=== PATIENT | female | born 1960 | race Caucasian/White ===

== ENCOUNTER → 2019-12-17 18:35 | Outpatient (BNVA) | payer MEDICAID, SELFPAY | PROVIDERS: Family Provider Family Medicine; Visit Provider Family Medicine | DX: E11.9 Type 2 diabetes mellitus without complications (principal); G47.00 Insomnia, unspecified; E78.5 Hyperlipidemia, unspecified; K21.9 Gastro-esophageal reflux disease without esophagitis; I10 Essential (primary) hypertension; F32.9 Major depressive disorder, single episode, unspecified | CPT/HCPCS: 80053; 80061; 83036 ==

== ENCOUNTER → 2019-12-24 14:10 | Outpatient (BNVA) | payer MEDICAID, SELFPAY | PROVIDERS: Family Provider Family Medicine; Visit Provider Psychiatry & Neurology Psychiatry | DX: F33.1 Major depressive disorder, recurrent, moderate (principal) | CPT/HCPCS: 90792 ==

== ENCOUNTER → 2020-08-04 11:07 | Outpatient (BNVA) | payer MEDICAID, SELFPAY | PROVIDERS: Family Provider Family Medicine; PCP Family Medicine; Visit Provider Family Medicine | DX: E11.65 Type 2 diabetes mellitus with hyperglycemia (principal); E78.2 Mixed hyperlipidemia; I25.10 Atherosclerotic heart disease of native coronary artery without angina pectoris; K21.9 Gastro-esophageal reflux disease without esophagitis; Z79.899 Other long term (current) drug therapy | CPT/HCPCS: 80053; 83036 ==

== ENCOUNTER → 2020-12-14 10:16 | Outpatient (BNVA) | payer MEDICAID, SELFPAY | PROVIDERS: Family Provider Family Medicine; PCP Family Medicine; Visit Provider Family Medicine | DX: E78.2 Mixed hyperlipidemia (principal); E11.65 Type 2 diabetes mellitus with hyperglycemia; I10 Essential (primary) hypertension; K21.9 Gastro-esophageal reflux disease without esophagitis; I25.10 Atherosclerotic heart disease of native coronary artery without angina pectoris | CPT/HCPCS: 80053; 80061; 83036 ==

== ENCOUNTER → 2021-04-13 15:41 | Outpatient (BNVA) | payer MEDICAID, SELFPAY | PROVIDERS: Family Provider Family Medicine; PCP Family Medicine; Visit Provider Family Medicine | DX: R39.9 Unspecified symptoms and signs involving the genitourinary system (principal); E11.65 Type 2 diabetes mellitus with hyperglycemia; E87.1 Hypo-osmolality and hyponatremia; N30.01 Acute cystitis with hematuria | CPT/HCPCS: 80048; 81000; 83036 ==

== ENCOUNTER 2021-04-14 23:14 | Emergency (ER) | payer MEDICAID, SELFPAY ==
[2021-04-15 00:35] VITALS: BP 116/73; PULSE 99; RESP 20; TEMP 37.2; O2SAT 97; BMI 24.9
[2021-04-15 00:47] LABS: Glucose Point of Care 223 mg/dL (70-110)
[2021-04-16 02:27] LABS: Glucose Point of Care 121 mg/dL (70-110)
== END 2021-04-15 02:40 | disposition left against medical advice (07) ==
PROVIDERS: Emergency Provider Family Medicine; PCP Family Medicine
DX: Z53.21 Procedure and treatment not carried out due to patient leaving prior to being seen by health care provider (principal)
CPT/HCPCS: 36416; 82962

== ENCOUNTER 2021-04-16 01:14 | Emergency (ER) | payer MEDICAID, SELFPAY ==
[2021-04-16] VITALS (7 sets, daily range): BP systolic 98–126; BP diastolic 50–63; PULSE 95–115; TEMP 37.1; O2SAT 93–936; BMI 26.5
--- NOTE | 2021-04-16 01:21 | XRR_ITS ---
PROCEDURE INFORMATION: Exam: XR Chest Exam date and time: 04/16/2021 1:21 AM Age: 60 years old Clinical indication: Patient HX: General weakness with hypotension. TECHNIQUE: Imaging protocol: XR of the chest. Views: 1 view. COMPARISON: No relevant prior studies available. FINDINGS: Lungs: Unremarkable. No consolidation. Pleural spaces: Unremarkable. No pleural effusion. No pneumothorax. Heart/Mediastinum: Unremarkable. No cardiomegaly. Bones/joints: Unremarkable. XR/XR chest 1V portable [id number] IMPRESSION: No acute findings. Radiation Dose CTDIVOL = (mGy): DLP = (mGy-cm)
--- NOTE | 2021-04-16 01:22 | ECG_ITS ---
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 Measurements Intervals [place] Rate: 97 P: 50 HI: 168 QRS: 40 QRSD: 150 T: -32 QT: 388 QTc: 495 Interpretive Statements SINUS RHYTHM LEFT BUNDLE BRANCH BLOCK [120+ ms QRS DURATION, 80+ ms Q/S IN V1/V2, 85+ ms R IN I/aVL/V5/V6] No previous ECG available for comparison Electronically Signed On 04-17-2021 13:18:27 SAFE AND VAULT SERVICE MECHANIC by Slade Soto M.D. [id number]
[2021-04-16 01:36] LABS: Basophils % 0.3 %; Hematocrit 41.4 % (37.0-47.0); Hemoglobin 13.5 g/dL (11.5-15.3); Lymphocytes # 0.5 10^3/uL (0.8-4.8); Lymphocytes % 6.7 %; Mean Corpuscular HGB Conc 32.6 g/dL (30.0-36.0); Mean Corpuscular Hemoglobin 28.8 pg (28.0-34.0); Mean Corpuscular Volume 88.3 fl (81-99); Mean Platelet Volume 10.9 fL (7.4-10.4); Monocytes # 0.4 10^3/uL (0.2-0.9); Neutrophils # 6.38 10^3/uL (1.8-7.7); Neutrophils % 86.6 %; Nucleated Red Blood Cells % 0 %; Platelet Count 258 10^3/cmm (130-400); Red Blood Count 4.69 10^6/uL (4.1-5.3); Red Cell Distribution Width 12.6 % (12.1-15.1); White Blood Count 7.4 10^3/uL (4.0-10.0)
--- NOTE | 2021-04-16 01:47 | W.ED.GENADLT ---
Documented by User: FERNANDO Todd 04/16/21 17:08 HPI - General Adult General: Chief complaint: General Medical Stated complaint: Weakness Time Seen by Provider: 04/16/21 01:18 History of Present Illness: HPI narrative: Patient is a 60-year-old female comes to the ED with generalized weakness. Past medical history of GERD, CAD, hyperlipidemia, hypertension, type 2 diabetes and depression. Patient says yesterday she had some elevated blood sugars of around 400. She had a couple episodes of emesis and diarrhea yesterday as well. Today she has not had any diarrhea, but had one episode of emesis earlier today. Her blood sugars have been back in the normal range today. She currently feels generalized weakness but a little dehydrated after the vomiting and diarrhea yesterday. Patient was recently diagnosed for UTI a couple days ago and is currently taking antibiotic. denies any fever, chills, chest pain, shortness of breath, abdominal pain, bladder or bowel symptoms. Associated symptoms: Reports nausea (Resolved) and vomiting (Resolved); Deny chest pain, dyspnea, headache(s), rash or palpitations Review of Systems Const: Reports: fatigue (Generalized weakness); Denies: fever(s) or chills Eyes: Denies: change in vision or eye discomfort ENMT: Denies: throat pain, odynophagia, nasal discharge or nasal congestion Card: Denies: chest pain, palpitations, edema, swelling of feet/ankles, dyspnea on exertion or orthopnea Resp: Denies: dyspnea, productive cough or non-productive cough GI: Reports: nausea (Resolved), vomiting (Resolved) and diarrhea (Resolved); Denies: abdominal pain, constipation or hematochezia : Denies: flank pain, dysuria or hematuria Musc: Denies: neck pain, back pain or extremity swelling Skin/Breast: Denies: rash or new lesions Neuro: Denies: headache(s), numbness in extremities or weakness in extremities PFSH ED PFSH: Medical History CAD (coronary artery disease) Depression GERD (gastroesophageal reflux disease) Hyperlipidemia Hypertension Insomnia Type 2 diabetes mellitus Family History Father Stroke Diabetes Social History Smoking and tobacco status: former smoker Alcohol intake: never History of recent travel: No Current gender identity: Female Physical Exam Const: COMMON NORMALS: no acute distress, patient oriented x3 and alert GENERAL APPEARANCE: cooperative and comfortable HENMT: COMMON NORMALS: normocephalic HEAD & SCALP: normocephalic MOUTH: moist mucous membranes abnormal Details: parched THROAT: posterior oropharynx normal and uvula midline Eye: COMMON NORMALS: Equal, round and reactive pupils present GENERAL EYE: appearance normal, both eyes and all related structures PUPIL: Yes Equal, round and reactive pupils present Neck/C-Spine: COMMON NORMALS: supple GENERAL: Yes normal visual inspection Resp: COMMON NORMALS: normal respiratory effort, No retractions, No use of accessory muscles and clear to auscultation bilaterally AUSCULTATION: clear to auscultation bilaterally Cardio: COMMON NORMALS: regular rate, regular rhythm, S1 normal heart sound present, S2 normal heart sound present, No gallops present (Cardio), No clicks present (Cardio), No murmurs present (Cardio) and Peripheral pulses 2+ throughout RATE: regular rate RHYTHM: regular rhythm HEART SOUNDS: S1 normal heart sound present and S2 normal heart sound present PERIPHERAL PULSES: Peripheral pulses 2+ throughout GI: COMMON NORMALS: Normal to inspection, nondistended, normoactive bowel sounds present, Soft to palpation, non-tender and no masses PALPATION: Yes Soft to palpation : COMMON NORMALS: Yes no CVA tenderness BLADDER/KIDNEY EXAM: Yes no CVA tenderness Back/Pelvis: COMMON NORMALS: no CVA tenderness Extremity: COMMON NORMALS: normal to inspection Neuro: COMMON NORMALS: patient oriented x3 and moves all extremities SENSORIUM/ORIENTATION: Yes alert Skin: GENERAL SKIN EXAM: dry skin Course Vital Signs: Vital signs: Vital Signs Temperature 98.8 F 04/16/21 01:17 Pulse Rate 115 H 04/16/21 06:48 Blood Pressure 126/62 04/16/21 06:48 Pulse Oximetry 94 04/16/21 06:48 MDM - General Adult Lab Data: Attestation: I reviewed the patient's lab results. Labs: Lab Results 04/16/21 04/16/21 04/16/21 01:31 01:31 01:31 WBC 7.4 10^3/uL 10^3/ uL (4.0-10.0) RBC 4.69 10^6/uL 10^6 /uL (4.1-5.3) Hgb 13.5 g/dL g/dL (11.5-15.3) Hct 41.4 % % (37.0-47.0) MCV 88.3 fl fl (81-99) MCH 28.8 pg pg (28.0-34.0) MCHC 32.6 g/dL g/dL (30.0-36.0) RDW 12.6 % % (12.1-15.1) Plt Count 258 10^3/cmm 10^3 /cmm (130-400) MPV 10.9 fL H fL (7.4-10.4) Neut % (Auto) 86.6 % % Lymph % (Auto) 6.7 % % [place] % (Auto) 6.0 % % Eos % (Auto) 0.0 % % Baso % (Auto) 0.3 % % Neut # (Auto) 6.38 10^3/uL 10^3 /uL (1.8-7.7) Lymph # (Auto) 0.5 10^3/uL L 10^ 3/uL (0.8-4.8) [place] # (Auto) 0.4 10^3/uL 10^3/ uL (0.2-0.9) Eos # (Auto) 0.0 10^3/uL 10^3/ uL (0.0-0.8) Baso # (Auto) 0.0 10^3/uL 10^3/ uL (0.0-0.1) Nucleated RBC % (a uto) 0 % % Nucleated RBCs # 0.0 /100WBC /100W BC Sodium 129 mmol/L L mmol /L (136-145) Potassium 4.5 mmol/L mmol/L (3.5-5.1) Chloride 92 mmol/L L mmol/ L (98-107) Carbon Dioxide 20 mmol/L L mmol/ L (22-29) Anion Gap 21.5 H (5-19) BUN 21 mg/dL mg/dL (8-23) Creatinine 1.0 mg/dL H mg/dL (0.5-0.9) GFR Calculation 56.2 mL/min L mL/ min (90-130) Glucose 105 mg/dL mg/dL (65-115) Calculated Osmolal ity 271 mOsm/kg L mOs m/kg (285-295) Calcium 8.7 mg/dL mg/dL (8.5-10.5) Total Bilirubin 0.2 mg/dL mg/dL (0.15-1.2) AST 16 U/L U/L (0-32) ALT 17 U/L U/L (0-33) Alkaline Phosphata se 59 IU/L IU/L (35-105) Troponin T Baselin e 17 ng/L H ng/L (0-10) Troponin T 120 Min [place] Troponin T Total Protein 7.1 g/dL g/dL (6.6-8.7) Albumin 4.3 g/dL g/dL (3.5-5.2) Globulin 2.8 g/dL g/dL (1.3-4.6) Urine Color Urine Appearance Urine pH Ur Specific Gravit y Urine Protein Urine Glucose (UA) Urine Ketones Urine Blood Urine Nitrate Urine Bilirubin Urine Urobilinogen Ur Leukocyte Rosalie ase Urine RBC Urine WBC Ur Squamous Epith Cells Amorphous Sediment Urine Bacteria Hyaline Casts SARS-CoV-2 Ag (Rap id) 04/16/21 04/16/21 04/16/21 02:19 04:25 04:28 WBC RBC Hgb Hct MCV MCH MCHC RDW Plt Count MPV Neut % (Auto) Lymph % (Auto) [place] % (Auto) Eos % (Auto) Baso % (Auto) Neut # (Auto) Lymph # (Auto) [place] # (Auto) Eos # (Auto) Baso # (Auto) Nucleated RBC % (a uto) Nucleated RBCs # Sodium Potassium Chloride Carbon Dioxide Anion Gap BUN Creatinine GFR Calculation Glucose Calculated Osmolal ity Calcium Total Bilirubin AST ALT Alkaline Phosphata se Troponin T Baselin e Troponin T 120 Min [place] 11.43 ng/L H ng/L (0-10) Delta Troponin T -5.57 ABS# L ABS# (0-10) Total Protein Albumin Globulin Urine Color Yellow (Yellow) Urine Appearance Clear (CLEAR) Urine pH 5 (5-7) Ur Specific Gravit y 1.020 (1.005-1.030) Urine Protein Neg (Negative) Urine Glucose (UA) 4+ H (Normal) Urine Ketones 1+ H (Negative) Urine Blood Neg (Negative) Urine Nitrate Negative (Negative) Urine Bilirubin 1+ H (Negative) Urine Urobilinogen Norm mg/dL mg/dL (Negative) Ur Leukocyte Rosalie ase 1+ H (Negative) Urine RBC 0-4 /hpf H /hpf (0-2) Urine WBC 15-25 /hpf H /hpf (0-5) Ur Squamous Epith Cells 10-15 /hpf H /hpf (0-5) Amorphous Sediment 1+ /hpf /hpf Urine Bacteria 1+ /hpf H /hpf (NONE) Hyaline Casts 0-4 /lpf H /lpf SARS-CoV-2 Ag (Rap id) Negative (Negative) Discharge Plan Discharge Patient Disposition: Home Clinical Impression: Acute dehydration Condition: Stable Prescriptions: No Action citalopram 20 mg tablet 20 mg PO DAILY 30 Days Qty: 30 RF: 5 lisinopril 10 mg tablet 10 mg PO DAILY 90 Days Qty: 90 RF: 1 lovastatin 20 mg tablet 20 mg PO DAILY 90 Days Qty: 90 RF: 1 omeprazole 10 mg capsule,delayed release(DR/EC) 10 mg PO DAILY 90 Days Qty: 90 RF: 1 diphenhydramine HCl [Benadryl] 25 mg capsule 25 mg PO BID PRN (Reason: itching/swelling) 5 Days Qty: 10 RF: 0 glipizide 10 mg tablet 10 mg PO BID 90 Days Qty: 180 RF: 1 Victoza 2-Frandy 0.6 mg/0.1 mL (18 mg/3 mL) pen injector 1.8 mg SUBCUT DAILY 30 Days Qty: 9 RF: 5 metformin 1,000 mg tablet 1,000 mg PO BID 90 Days Qty: 180 RF: 1 (DME) Blood Glucose Test Strip See Rx Instructions .ROUTE .MEDSUPPLY Qty: 50 RF: 11 (DME) blood-glucose meter [Blood Glucose Monitoring] Kit See Rx Instructions .ROUTE .MEDSUPPLY Qty: 1 RF: 0 (DME) lancets Misc See Rx Instructions .ROUTE .MEDSUPPLY Qty: 100 RF: 11 alcohol swabs Pads, Medicated 1 pad topical TID PRN (Reason: as needed to check blood sugar) 30 Days Qty: 100 RF: 11 melatonin 3 mg tablet 3 mg PO DAILY RF: 0 aspirin 81 mg tablet,chewable 81 mg PO DAILY RF: 0 hydroxyzine HCl 25 mg tablet 25 mg PO .at bedtime PRN (Reason: insomina) 30 Days Qty: 30 RF: 2 sulfamethoxazole-trimethoprim [Bactrim DS] 800-160 mg tablet 1 tab PO Q12H 3 Days Qty: 6 RF: 0 Farxiga 10 mg tablet 10 mg PO QAM 30 Days Qty: 30 RF: 5 Discharge Orders: Discharge ED (Routine); Ordered 04/16/21 Ordered By: Felipe Paul Referrals: Sheree Fernandez MD [Primary Care Provider] - 1-3 days Discharge Diet: Advance as tolerated Discharge Activity: Increase activity as tolerated Patient Instructions: Dehydration (ED) Activity Restrictions/Additional Instructions: Continue your antibiotics. Watch your blood sugar closely. Return for fever greater than 100, shortness of breath, vomiting liquids or medications, continued diarrhea, any other concerning symptoms. Coding Level of Care Code ED Outreach Librarian for Chg Fwd Exam Comprehensive Documented by User: Felipe Paul DO 04/16/21 06:05 HPI - General Adult General: Chief complaint: General Medical Stated complaint: Weakness Time Seen by Provider: 04/16/21 01:18 [facility] ED PFSH: Medical History CAD (coronary artery disease) Depression GERD (gastroesophageal reflux disease) Hyperlipidemia Hypertension Insomnia Type 2 diabetes mellitus Family History Father Stroke Diabetes Social History Smoking and tobacco status: former smoker Alcohol intake: never History of recent travel: No Current gender identity: Female Course Vital Signs: Vital signs: Vital Signs Temperature 98.8 F 04/16/21 01:17 Pulse Rate 115 H 04/16/21 06:48 Blood Pressure 126/62 04/16/21 06:48 Pulse Oximetry 94 04/16/21 06:48 MDM - General Adult MDM Narrative: Medical decision making narrative: 60-year-old female checked out to me by Lisbet at shift change this lady said generalized weakness, following diarrhea high blood sugars yesterday with some emesis. She has had 2.5 L currently. Her heart rates in the 100s. Her oxygen sat is 90% on room air. Her white blood cell count 7.4. Her bicarbonate level is 20. Her creatinine is up to 1, and her baseline is 0.4. She is initially mildly hypotensive. Current blood pressure is 115/50 with a MAP of 71. She is feeling improved. We will allow her home. We did do a rapid Covid test on her which was negative. Head CT and chest x-ray are also negative. Lab Data: Labs: Lab Results 04/16/21 04/16/21 04/16/21 01:31 01:31 01:31 WBC 7.4 10^3/uL 10^3/ uL (4.0-10.0) RBC 4.69 10^6/uL 10^6 /uL (4.1-5.3) Hgb 13.5 g/dL g/dL (11.5-15.3) Hct 41.4 % % (37.0-47.0) MCV 88.3 fl fl (81-99) MCH 28.8 pg pg (28.0-34.0) MCHC 32.6 g/dL g/dL (30.0-36.0) RDW 12.6 % % (12.1-15.1) Plt Count 258 10^3/cmm 10^3 /cmm (130-400) MPV 10.9 fL H fL (7.4-10.4) Neut % (Auto) 86.6 % % Lymph % (Auto) 6.7 % % [place] % (Auto) 6.0 % % Eos % (Auto) 0.0 % % Baso % (Auto) 0.3 % % Neut # (Auto) 6.38 10^3/uL 10^3 /uL (1.8-7.7) Lymph # (Auto) 0.5 10^3/uL L 10^ 3/uL (0.8-4.8) [place] # (Auto) 0.4 10^3/uL 10^3/ uL (0.2-0.9) Eos # (Auto) 0.0 10^3/uL 10^3/ uL (0.0-0.8) Baso # (Auto) 0.0 10^3/uL 10^3/ uL (0.0-0.1) Nucleated RBC % (a uto) 0 % % Nucleated RBCs # 0.0 /100WBC /100W BC Sodium 129 mmol/L L mmol /L (136-145) Potassium 4.5 mmol/L mmol/L (3.5-5.1) Chloride 92 mmol/L L mmol/ L (98-107) Carbon Dioxide 20 mmol/L L mmol/ L (22-29) Anion Gap 21.5 H (5-19) BUN 21 mg/dL mg/dL (8-23) Creatinine 1.0 mg/dL H mg/dL (0.5-0.9) GFR Calculation 56.2 mL/min L mL/ min (90-130) Glucose 105 mg/dL mg/dL (65-115) Calculated Osmolal ity 271 mOsm/kg L mOs m/kg (285-295) Calcium 8.7 mg/dL mg/dL (8.5-10.5) Total Bilirubin 0.2 mg/dL mg/dL (0.15-1.2) AST 16 U/L U/L (0-32) ALT 17 U/L U/L (0-33) Alkaline Phosphata se 59 IU/L IU/L (35-105) Troponin T Baselin e 17 ng/L H ng/L (0-10) Troponin T 120 Min [place] Troponin T Total Protein 7.1 g/dL g/dL (6.6-8.7) Albumin 4.3 g/dL g/dL (3.5-5.2) Globulin 2.8 g/dL g/dL (1.3-4.6) Urine Color Urine Appearance Urine pH Ur Specific Gravit y Urine Protein Urine Glucose (UA) Urine Ketones Urine Blood Urine Nitrate Urine Bilirubin Urine Urobilinogen Ur Leukocyte Rosalie ase Urine RBC Urine WBC Ur Squamous Epith Cells Amorphous Sediment Urine Bacteria Hyaline Casts SARS-CoV-2 Ag (Rap id) 04/16/21 04/16/21 04/16/21 02:19 04:25 04:28 WBC RBC Hgb Hct MCV MCH MCHC RDW Plt Count MPV Neut % (Auto) Lymph % (Auto) [place] % (Auto) Eos % (Auto) Baso % (Auto) Neut # (Auto) Lymph # (Auto) [place] # (Auto) Eos # (Auto) Baso # (Auto) Nucleated RBC % (a uto) Nucleated RBCs # Sodium Potassium Chloride Carbon Dioxide Anion Gap BUN Creatinine GFR Calculation Glucose Calculated Osmolal ity Calcium Total Bilirubin AST ALT Alkaline Phosphata se Troponin T Baselin e Troponin T 120 Min [place] 11.43 ng/L H ng/L (0-10) Delta Troponin T -5.57 ABS# L ABS# (0-10) Total Protein Albumin Globulin Urine Color Yellow (Yellow) Urine Appearance Clear (CLEAR) Urine pH 5 (5-7) Ur Specific Gravit y 1.020 (1.005-1.030) Urine Protein Neg (Negative) Urine Glucose (UA) 4+ H (Normal) Urine Ketones 1+ H (Negative) Urine Blood Neg (Negative) Urine Nitrate Negative (Negative) Urine Bilirubin 1+ H (Negative) Urine Urobilinogen Norm mg/dL mg/dL (Negative) Ur Leukocyte Rosalie ase 1+ H (Negative) Urine RBC 0-4 /hpf H /hpf (0-2) Urine WBC 15-25 /hpf H /hpf (0-5) Ur Squamous Epith Cells 10-15 /hpf H /hpf (0-5) Amorphous Sediment 1+ /hpf /hpf Urine Bacteria 1+ /hpf H /hpf (NONE) Hyaline Casts 0-4 /lpf H /lpf SARS-CoV-2 Ag (Rap id) Negative (Negative) Discharge Plan Discharge Patient Disposition: Home Clinical Impression: Acute dehydration Condition: Stable Prescriptions: No Action citalopram 20 mg tablet 20 mg PO DAILY 30 Days Qty: 30 RF: 5 lisinopril 10 mg tablet 10 mg PO DAILY 90 Days Qty: 90 RF: 1 lovastatin 20 mg tablet 20 mg PO DAILY 90 Days Qty: 90 RF: 1 omeprazole 10 mg capsule,delayed release(DR/EC) 10 mg PO DAILY 90 Days Qty: 90 RF: 1 diphenhydramine HCl [Benadryl] 25 mg capsule 25 mg PO BID PRN (Reason: itching/swelling) 5 Days Qty: 10 RF: 0 glipizide 10 mg tablet 10 mg PO BID 90 Days Qty: 180 RF: 1 Victoza 2-Frandy 0.6 mg/0.1 mL (18 mg/3 mL) pen injector 1.8 mg SUBCUT DAILY 30 Days Qty: 9 RF: 5 metformin 1,000 mg tablet 1,000 mg PO BID 90 Days Qty: 180 RF: 1 (DME) Blood Glucose Test Strip See Rx Instructions .ROUTE .MEDSUPPLY Qty: 50 RF: 11 (DME) blood-glucose meter [Blood Glucose Monitoring] Kit See Rx Instructions .ROUTE .MEDSUPPLY Qty: 1 RF: 0 (DME) lancets Misc See Rx Instructions .ROUTE .MEDSUPPLY Qty: 100 RF: 11 alcohol swabs Pads, Medicated 1 pad topical TID PRN (Reason: as needed to check blood sugar) 30 Days Qty: 100 RF: 11 melatonin 3 mg tablet 3 mg PO DAILY RF: 0 aspirin 81 mg tablet,chewable 81 mg PO DAILY RF: 0 hydroxyzine HCl 25 mg tablet 25 mg PO .at bedtime PRN (Reason: insomina) 30 Days Qty: 30 RF: 2 sulfamethoxazole-trimethoprim [Bactrim DS] 800-160 mg tablet 1 tab PO Q12H 3 Days Qty: 6 RF: 0 Farxiga 10 mg tablet 10 mg PO QAM 30 Days Qty: 30 RF: 5 Discharge Orders: Discharge ED (Routine); Ordered 04/16/21 Ordered By: Felipe Paul Referrals: Sheree Fernandez MD [Primary Care Provider] - 1-3 days Discharge Diet: Advance as tolerated Discharge Activity: Increase activity as tolerated Patient Instructions: Dehydration (ED) Activity Restrictions/Additional Instructions: Continue your antibiotics. Watch your blood sugar closely. Return for fever greater than 100, shortness of breath, vomiting liquids or medications, continued diarrhea, any other concerning symptoms. Coding Level of Care Code ED Outreach Librarian for Chg Fwd Exam Comprehensive
[2021-04-16 02:00] LABS: Troponin(5th) Baseline 17 ng/L (0-10)
[2021-04-16 02:03] LABS: Alanine Aminotransferase 17 U/L (0-33); Albumin Level 4.3 g/dL (3.5-5.2); Alkaline Phosphatase 59 IU/L (35-105); Anion Gap 21.5 (5-19); Aspartate Amino Transferase 16 U/L (0-32); Blood Urea Nitrogen 21 mg/dL (8-23); Calcium 8.7 mg/dL (8.5-10.5); Carbon Dioxide 20 mmol/L (22-29); Chloride 92 mmol/L (98-107); Globulin 2.8 g/dL (1.3-4.6); Glomerular Filtration Rate 56.2 mL/min (90-130); Glucose 105 mg/dL (65-115); Osmolality Calculated 271 mOsm/kg (285-295); Potassium 4.5 mmol/L (3.5-5.1); Sodium 129 mmol/L (136-145); Total Bilirubin 0.2 mg/dL (0.15-1.2); Total Protein 7.1 g/dL (6.6-8.7)
[2021-04-16 02:41] LABS: Urine Appearance Clear (CLEAR); Urine Color Yellow (Yellow)
[2021-04-16 02:42] LABS: Add Urine Microscopic? YES; Bilirubin Urine 1+ (Negative); Blood Urine Neg (Negative); Glucose Urine UA 4+ (Normal); Ketones Urine 1+ (Negative); Leukocyte Esterase Urine 1+ (Negative); Nitrate Urine Negative (Negative); Protein Urine Neg (Negative); Urobilinogen Urine Norm (Negative); pH Urine 5 (5-7)
[2021-04-16 02:45] LABS: Add Urine Culture? No; Amorphous Sediment Urine 1+ /hpf; Bacteria Urine 1+ /hpf; Hyaline Casts Urine 0-4 /lpf; RBC Urine 0-4 /hpf (0-2); WBC Urine 15-25 /hpf (0-5)
--- NOTE | 2021-04-16 03:00 | CTR_ITS ---
PROCEDURE INFORMATION: Exam: CT Head Without Contrast Exam date and time: 04/16/2021 3:00 AM Age: 60 years old Clinical indication: Patient HX: C/O dizziness and general weakness. Hypotensive. TECHNIQUE: Imaging protocol: Computed tomography of the head without contrast. Radiation optimization: All CT scans at this facility use at least one of these dose optimization techniques: automated exposure control; mA and/or kV adjustment per patient size (includes targeted exams where dose is matched to clinical indication); or iterative reconstruction. COMPARISON: No relevant prior studies available. RADIATION DOSE METRICS: Total DLP (mGy-cm): 768.56 FINDINGS: Brain: There is mild parenchymal atrophy and chronic small vessel disease. No acute infarct or hemorrhage. Cerebral ventricles: No ventriculomegaly. Paranasal sinuses: Paranasal sinuses are clear. No air-fluid level. Mastoid air cells: Visualized mastoid air cells are clear. Bones/joints: No calvarial or skull base fracture. Soft tissues: Unremarkable. CT/CT head wo con* [id number] IMPRESSION: 1. No acute infarct or hemorrhage. 2. No calvarial or skull base fracture. 3. Mild parenchymal atrophy and chronic small vessel disease. Radiation Dose CTDIVOL = (mGy): DLP = 768.56 (mGy-cm)
--- NOTE | 2021-04-16 03:22 | ECG_ITS ---
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 Measurements Intervals [place] Rate: 112 P: 12 MI: 168 QRS: 42 QRSD: 145 T: 184 QT: 348 QTc: 476 Interpretive Statements SINUS TACHYCARDIA LEFT BUNDLE BRANCH BLOCK [120+ ms QRS DURATION, 80+ ms Q/S IN V1/V2, 85+ ms R IN I/aVL/V5/V6] Compared to ECG 04/16/2021 02:16:29 Sinus rhythm no longer present Electronically Signed On 04-18-2021 17:29:59 PHARMACY OPERATIONS SPECIALIST by Slade Soto M.D. [id number]
[2021-04-16] MEDS: sodium chloride 0.9% 500 ML 999 ML IV (03:27)
[2021-04-16 05:05] LABS: Troponin 5 2HR 11.43 ng/L (0-10); Troponin 5 2HR Delta -5.57 ABS# (0-10)
[2021-04-16 05:18] LABS: SARS Covid-2 Antigen Negative (Negative)
== END 2021-04-16 06:51 | disposition home or self-care (01) ==
PROVIDERS: Physician Assistant; Emergency Provider Emergency Medicine; PCP Family Medicine
DX: E86.0 Dehydration (principal); Z79.84 Long term (current) use of oral hypoglycemic drugs; Z79.82 Long term (current) use of aspirin; I25.10 Atherosclerotic heart disease of native coronary artery without angina pectoris; E78.5 Hyperlipidemia, unspecified; I10 Essential (primary) hypertension; E11.9 Type 2 diabetes mellitus without complications; Z87.891 Personal history of nicotine dependence; Z20.822 Contact with and (suspected) exposure to COVID-19
CPT/HCPCS: 36416; 70450; 71045; 80053; 81001; 82962; 84484; 85025; 87426; 93005; 99284; J7040

== ENCOUNTER → 2021-04-22 16:53 | Outpatient (BNVA) | payer MEDICAID, SELFPAY | PROVIDERS: PCP Family Medicine; Visit Provider Nurse Practitioner Family | DX: B37.9 Candidiasis, unspecified (principal) | CPT/HCPCS: 81000 ==

== ENCOUNTER → 2021-06-25 12:56 | Outpatient (BNVA) | payer MEDICAID, SELFPAY | PROVIDERS: PCP Family Medicine; Visit Provider Emergency Medicine | DX: N39.0 Urinary tract infection, site not specified (principal); E11.65 Type 2 diabetes mellitus with hyperglycemia; M62.838 Other muscle spasm; R81 Glycosuria | CPT/HCPCS: 81000 ==

== ENCOUNTER → 2021-07-26 10:53 | Outpatient (BNVA) | payer MEDICAID, SELFPAY | PROVIDERS: PCP Family Medicine; Visit Provider Family Medicine | DX: I10 Essential (primary) hypertension (principal); E78.2 Mixed hyperlipidemia; E11.65 Type 2 diabetes mellitus with hyperglycemia | CPT/HCPCS: 80053; 80061; 83036 ==